=== PATIENT | male | born 1945 | race Caucasian/White ===

== ENCOUNTER 2018-07-26 13:35 | Emergency (ER) | payer MEDICARE, BC ==
--- NOTE | 2018-07-26 13:52 | ER Report ---
History and Physical Time Seen By MD: 13:51 Hx. of Stated Complaint: flu like symptoms, right sided facial numbness starting last night. HPI/ROS CHIEF COMPLAINT: shortness breath, right-sided facial numbness, tongue numbness HISTORY OF PRESENT ILLNESS: Patient is a 73-year-old male here with complaints of recent fevers, diffuse myalgias, arthralgias. Patient complains of numbness and paresthesias of the right side face with tongue numbness. Patient also had mild right-sided facial palsy. Due to the patient's history of cancer and comorbidities, concern was raised for CVA. Patient was also noted to have an irregular heartbeat on initial physical exam. Patient denies prior history of atrial fibrillation or flutter. Patient is afebrile at time of evaluation, hemodynamically stable and in no acute distress REVIEW OF SYSTEMS: Constitutional: No fever, no chills. Eyes: No discharge. ENT: No sore throat. Cardiovascular: No chest pain, no palpitations. Respiratory: No cough, no shortness of breath. Gastrointestinal: No abdominal pain, no vomiting. Genitourinary: No hematuria. Musculoskeletal: No back pain. Skin: No rashes. Neurological: Right-sided facial paresthesias, right-sided mild facial palsy Allergies: Coded Allergies: No Known Drug Allergies (Unverified , 07/26/18) Home Meds Active Scripts Rivaroxaban 20 Mg (XARELTO 20 MG) 20 Mg Tablet, 20 MG PO QDAY, #30 TAB 2 Refills Prov:MONICA MCKOY DO 07/26/18 Apixaban (ELIQUIS) 5 Mg Tablet, 5 MG PO BID, #60 TAB 2 Refills Prov:MONICA MCKOY DO 07/26/18 Prednisone (PREDNISONE) 50 Mg Tablet, 50 MG PO QDAY for 7 Days, #7 TAB Prov:MONICA MCKOY DO 07/26/18 Reported Medications Venlafaxine Hcl (EFFEXOR XR) 75 Mg Cap.er.24h, 100 MG PO QDAY 07/26/18 Constitutional Vital Sign - Last 24 Hours 07/26/18 07/26/18 07/26/18 07/26/18 13:45 14:30 15:30 17:00 Temp 98.9 Pulse 98 96 104 Resp 18 B/P (MAP) 110/94 94/75 (81) 106/82 (90) Pulse Ox 93 95 87 O2 Delivery Room Air Physical Exam General Appearance: The patient is alert, has no immediate need for airway protection and no signs of toxicity. No acute distress Eyes: Pupils equal and round no pallor or injection. ENT, Mouth: Mucous membranes are moist. Respiratory: There are no retractions, lungs are clear to auscultation. Cardiovascular: Irregular heartbeat Gastrointestinal: Abdomen is soft and non tender, no masses, bowel sounds normal. Neurological: Right-sided mild facial palsy Skin: Warm and dry, no rashes. Musculoskeletal: Neck is supple non tender. Extremities are nontender, nonswollen and have full range of motion. DIFFERENTIAL DIAGNOSIS: After history and physical exam differential diagnosis was considered for Hair palsy, CVA, TIA, viral illness, atrial fibrillation, atrial flutter Medical Decision Making Data Points Result Diagram: 07/26/18 1416 07/26/18 1416 Laboratory Hematology Test 07/26/18 14:12 07/26/18 14:16 07/26/18 14:20 B-Type Natriuretic Peptide 256 pg/ml (0-100) Red Blood Count 5.28 M/uL (4.00-5.60) Mean Corpuscular Volume 88.2 fL (80.0-96.0) Mean Corpuscular Hemoglobin 30.1 pg (26.0-33.0) Mean Corpuscular Hemoglobin Concent 34.2 g/dL (32.0-36.0) Red Cell Distribution Width 14.0 % (11.5-14.5) Mean Platelet Volume 7.7 fL (7.2-11.1) Neutrophils (%) (Auto) 59.9 % (39.4-72.5) Lymphocytes (%) (Auto) 22.2 % (17.6-49.6) Monocytes (%) (Auto) 15.3 % (4.1-12.4) Eosinophils (%) (Auto) 2.0 % (0.4-6.7) Basophils (%) (Auto) 0.6 % (0.3-1.4) Nucleated RBC Relative Count (auto) 0.2 /100WBC Neutrophils # (Auto) 2.8 K/uL (2.0-7.4) Lymphocytes # (Auto) 1.1 K/uL (1.3-3.6) Monocytes # (Auto) 0.7 K/uL (0.3-1.0) Eosinophils # (Auto) 0.1 K/uL (0.0-0.5) Basophils # (Auto) 0.0 K/uL (0.0-0.1) Nucleated RBC Absolute Count (auto) 0.01 K/uL Prothrombin Time 12.8 seconds (12.0-14.4) Prothromb Time International Ratio 0.96 Activated Partial Thromboplast Time 26 seconds (23-35) Sodium Level 136 mmol/L (137-145) Potassium Level 4.3 mmol/L (3.5-5.0) Chloride Level 98 mmol/L (98-107) Carbon Dioxide Level 25 mmol/L (22-30) Blood Urea Nitrogen 19 mg/dl (9-21) Creatinine 0.90 mg/dl (0.66-1.25) Glomerular Filtration Rate Calc > 60.0 Random Glucose 226 mg/dl (75-110) Calcium Level 9.5 mg/dl (8.4-10.2) Total Bilirubin 0.9 mg/dl (0.2-1.3) Aspartate Amino Transf (AST/SGOT) 24 U/L (0-35) Alanine Aminotransferase (ALT/SGPT) 43 U/L (0-56) Alkaline Phosphatase 104 U/L (0-126) Total Protein 7.2 g/dl (6.3-8.2) Albumin 4.3 g/dl (3.5-5.0) Influenza Virus Type A (PCR) Positive (NEGATIVE) Influenza Virus Type B (PCR) Negative (NEGATIVE) Chemistry Test 07/26/18 14:12 07/26/18 14:16 07/26/18 14:20 B-Type Natriuretic Peptide 256 pg/ml (0-100) White Blood Count 4.7 k/uL (4.5-11.0) Red Blood Count 5.28 M/uL (4.00-5.60) Hemoglobin 15.9 g/dL (14.0-18.0) Hematocrit 46.5 % (42.0-52.0) Mean Corpuscular Volume 88.2 fL (80.0-96.0) Mean Corpuscular Hemoglobin 30.1 pg (26.0-33.0) Mean Corpuscular Hemoglobin Concent 34.2 g/dL (32.0-36.0) Red Cell Distribution Width 14.0 % (11.5-14.5) Platelet Count 157 K/uL (150-450) Mean Platelet Volume 7.7 fL (7.2-11.1) Neutrophils (%) (Auto) 59.9 % (39.4-72.5) Lymphocytes (%) (Auto) 22.2 % (17.6-49.6) Monocytes (%) (Auto) 15.3 % (4.1-12.4) Eosinophils (%) (Auto) 2.0 % (0.4-6.7) Basophils (%) (Auto) 0.6 % (0.3-1.4) Nucleated RBC Relative Count (auto) 0.2 /100WBC Neutrophils # (Auto) 2.8 K/uL (2.0-7.4) Lymphocytes # (Auto) 1.1 K/uL (1.3-3.6) Monocytes # (Auto) 0.7 K/uL (0.3-1.0) Eosinophils # (Auto) 0.1 K/uL (0.0-0.5) Basophils # (Auto) 0.0 K/uL (0.0-0.1) Nucleated RBC Absolute Count (auto) 0.01 K/uL Prothrombin Time 12.8 seconds (12.0-14.4) Prothromb Time International Ratio 0.96 Activated Partial Thromboplast Time 26 seconds (23-35) Glomerular Filtration Rate Calc > 60.0 Calcium Level 9.5 mg/dl (8.4-10.2) Total Bilirubin 0.9 mg/dl (0.2-1.3) Aspartate Amino Transf (AST/SGOT) 24 U/L (0-35) Alanine Aminotransferase (ALT/SGPT) 43 U/L (0-56) Alkaline Phosphatase 104 U/L (0-126) Total Protein 7.2 g/dl (6.3-8.2) Albumin 4.3 g/dl (3.5-5.0) Influenza Virus Type A (PCR) Positive (NEGATIVE) Influenza Virus Type B (PCR) Negative (NEGATIVE) Coagulation Test 07/26/18 14:16 Prothrombin Time 12.8 seconds Prothromb Time International Ratio 0.96 Activated Partial Thromboplast Time 26 seconds EKG/Imaging EKG Interpretation Test Reason : FACIAL DROOP Blood Pressure : / mmHG Vent. Rate : 087 BPM Atrial Rate : 300 BPM P-R Int : 000 ms QRS Dur : 160 ms QT Int : 424 ms P-R-T Axes : 000 -02 153 degrees QTc Int : 510 ms Atrial flutter with variable AV block Left bundle branch block Abnormal ECG Confirmed by RADHA DUENAS ([id number]) on 07/26/2018 4:26:14 PM Referred By: LEELEE Confirmed By:RADHA DUENAS Imaging Location: [facility] Patient: Shane King : 1945 Visit/Account:[id number] Date of Sevice: 07/26/2018 EXAMINATION: MRI brain without IV contrast HISTORY: Rule out CVA. Left-sided facial numbness since yesterday. COMPARISON: None. TECHNIQUE: Multi-planar, multi-sequence brain MRI was performed without IV contrast. FINDINGS: Brain volume: Normal. Sagittal midline structures: Normal. Ventricles: Normal. Acute ischemic changes: No diffusion restriction present to suggest acute ischemia. Hemorrhage: No acute hemorrhage or hemosiderin staining. Masses/edema: None. Young-white: Negative. White matter: Patchy T2/FLAIR hyperintensities in the deep white matter bilaterally. Vessels: Normal. Extra-axial: None. Calvarium/scalp: Negative. Skull base: Negative. Visualized sinuses/orbits: Mild patchy mucosal thickening in the paranasal sinuses. Previous lens surgery bilaterally. Visualized upper neck: Negative. IMPRESSION: 1. No acute infarct, hemorrhage or intracranial mass lesion. 2. Syed-gm-swtyzsii nonspecific white matter disease is suspicious for chronic small vessel ischemia. 3. Mild nonobstructive inflammation of the paranasal sinuses. Location: [facility] Patient: Shane King : 1945 Visit/Account:[id number] Date of Sevice: 07/26/2018 EXAMINATION: Chest 2 Views HISTORY: Cough and shortness of breath COMPARISON: None. FINDINGS: The lungs are clear. No focal consolidation or pleural fluid. No pneumothorax. Normal cardiomediastinal silhouette, with normal heart size and pulmonary vascularity. No acute osseous findings. Old left rib fractures. Scattered degenerative changes along the spine. IMPRESSION: No evidence of acute cardiopulmonary disease. ED Course/Re-evaluation ED Course Patient is a 73-year-old male here with complaints of right-sided facial paresthesias, mild facial palsy, irregular heartbeat found to be in atrial flutter with variable block. There is also a left bundle-branch block which patient reports was identified on prior cardiology evaluation 2 years prior. Patient has no prior history of irregular heartbeat however physical exam was consistent with new onset or identified regular heartbeat which was identified be atrial flutter. Patient's right-sided facial palsy was concerning for CVA so MRI was completed which did not identify an acute ischemic stroke. Patient was positive for influenza a. Patient was started on prednisone seven-day course, pa tient's rate was stable On EKG. Patient was noted be asymptomatic with atrial flutter with block. Patient was given scripts for eliquis and xarelto in case her insurance did not cover one of these medications and advised to continue taking this medication until suitable follow-up with cardiology and have further evaluation with echo. I discussed these findings with the patient, the patient's and the patient's daughter and they voiced understanding of plan. Patient was advised to establish a PCP as he is new to the area. Patient was hemodynamically stable at time of discharge. Return precautions provided. Decision to Disposition Date: Jul 26, 2018 Decision to Disposition Time: 17:29 Depart Departure Latest Vital Signs Vital Signs Date Time Temp Pulse Resp B/P (MAP) Pulse Ox O2 Delivery O2 Flow Rate FiO2 07/26/18 17:00 106/82 (90) 07/26/18 15:30 104 87 07/26/18 13:45 98.9 18 Room Air Impression: Primary Impression: Hair's palsy Additional Impression: Atrial flutter Condition: Improved Disposition: HOME OR SELF-CARE New Scripts Rivaroxaban 20 Mg (XARELTO 20 MG) 20 Mg Tablet 20 MG PO QDAY, #30 TAB 2 Refills Prov: MONICA MCKOY DO 07/26/18 Apixaban (ELIQUIS) 5 Mg Tablet 5 MG PO BID, #60 TAB 2 Refills Prov: MONICA MCKOY DO 07/26/18 Prednisone (PREDNISONE) 50 Mg Tablet 50 MG PO QDAY for 7 Days, #7 TAB Prov: MONICA MCKOY DO 07/26/18 Patient Instructions: Atrial Flutter (ED), Hair Palsy (ED) Additional Instructions: Please follow up closely with cardiology for further evaluation of your abnormal heart rhythm. Please take 5 mg of Eliquis twice daily until you're able to follow up with cardiology. You may take Xarelto 20 mg daily in the evening but do not combine with Eliquis Please return promptly if you develop visual disturbances, fevers, difficulty breathing, palpitations. Please take prednisone 50 mg daily for 7 days for treatment of your Hair palsy. Problem Qualifiers MONICA MCKOY DO Jul 26, 2018 13:52
[2018-07-26 14:31] LABS: PLATELET COUNT, AUTOMATED 157 K/uL (150-450)
--- NOTE | 2018-07-26 14:33 | EKG ---
FACILITY: [facility] PATIENT NAME: KAVITA COLIN : [id number] MR: [id number] V: [id number] EXAM DATE: ORDERING PHYSICIAN: MONICA MCKOY TECHNOLOGIST: ROYAL Test Reason : FACIAL DROOP Blood Pressure : / mmHG Vent. Rate : 087 BPM Atrial Rate : 300 BPM P-R Int : 000 ms QRS Dur : 160 ms QT Int : 424 ms P-R-T Axes : 000 -02 153 degrees QTc Int : 510 ms Atrial flutter with variable AV block Left bundle branch block Abnormal ECG Confirmed by RADHA DUENAS ([id number]) on 07/26/2018 4:26:14 PM Referred By: LEELEE Confirmed By:RADHA DUENAS
[2018-07-26 14:34] LABS: INR 0.96
--- NOTE | 2018-07-26 15:00 | RADIOLOGY IMAGING REPORT ---
[place] [facility] [place] Shane King : 1945 MR: [id number] V: [id number] EXAM DATE: ORDERING PHYSICIAN: MONICA MCKOY TECHNOLOGIST: Location: [facility] Patient: Shane King : 1945 Visit/Account:[id number] Date of Sevice: 07/26/2018 EXAMINATION: Single frontal view of the orbits HISTORY: MRI screening COMPARISON: None. FINDINGS: No metallic or other radiopaque foreign bodies are visualized in the region of the bony orbits. Visu alized osseous structures are unremarkable on this single view. IMPRESSION: Exam is negative for orbital metal. Report Dictated By: Dylan Gonzalez MD at 07/26/2018 2:54 PM Report E-Signed By: Dylan Gonzalez MD at 07/26/2018 2:54 PM WSN:[id number]
--- NOTE | 2018-07-26 15:01 | RADIOLOGY IMAGING REPORT ---
FACILITY: [facility] PATIENT NAME: Shane King : 1945 MR: [id number] V: [id number] EXAM DATE: ORDERING PHYSICIAN: MONICA MCKOY TECHNOLOGIST: Location: [facility] - [place], [place] Patient: Shane King : 1945 Visit/Account:[id number] Date of Sevice: 07/26/2018 EXAMINATION: Chest 2 Views HISTORY: Cough and shortness of breath COMPARISON: None. FINDINGS: The lungs are clear. No focal consolidation or pleural fluid. No pneumothorax. Normal cardiomediastinal silhouette, with normal heart size and pulmonary vascularity. No acute osseous findings. Old left rib fractures. Scattered degenerative changes along the spine. IMPRESSION: No evidence of acute cardiopulmonary disease. Report Dictated By: Dylan Gonzalez MD at 07/26/2018 2:54 PM Report E-Signed By: Dylan Gonzalez MD at 07/26/2018 2:56 PM WSN:[id number]
[2018-07-26] MEDS ORDERED: VENL75CA58 PO (15:08)
--- NOTE | 2018-07-26 15:44 | RADIOLOGY IMAGING REPORT ---
FACILITY: [facility] PATIENT NAME: Shane King : 1945 MR: [id number] V: [id number] EXAM DATE: [id number] ORDERING PHYSICIAN: MONICA MCKOY TECHNOLOGIST: [place] [facility] [place] Shane [place] : 1945 Visit/Account:[id number] Date of Sevice: 07/26/2018 EXAMINATION: MRI brain without IV contrast HISTORY: Rule out CVA. Left-sided facial numbness since yesterday. COMPARISON: None. TECHNIQUE: Multi-planar, multi-sequence brain MRI was performed without IV contrast. FINDINGS: Brain volume: Normal. Sagittal midline structures: Normal. Ventricles: Normal. Acute ischemic changes: No diffusion restriction present to suggest acute ischemia. Hemorrhage: No acute hemorrhage or hemosiderin staining. Masses/edema: None. Young-white: Negative. White matter: Patchy T2/FLAIR hyperintensities in the deep white matter bilaterally. Vessels: Normal. Extra-axial: None. Calvarium/scalp: Negative. Skull base: Negative. Visualized sinuses/orbits: Mild patchy mucosal thickening in the paranasal sinuses. Previous lens s urgery bilaterally. Visualized upper neck: Negative. IMPRESSION: 1. No acute infarct, hemorrhage or intracranial mass lesion. 2. Lxge-lm-vzhxjrul nonspecific white matter disease is suspicious for chronic small vessel ischemia . 3. Mild nonobstructive inflammation of the paranasal sinuses. Report Dictated By: Belle York MD at 07/26/2018 3:36 PM Report E-Signed By: Belle York MD at 07/26/2018 3:40 PM WSN:[id number]
--- NOTE | 2018-07-26 16:28 | EKG ---
[place] [facility] [place] NAME: KAVITA COLIN : [id number] MR: [id number] V: [id number] EXAM DATE: ORDERING PHYSICIAN: MONICA MCKOY TECHNOLOGIST: THELMA Oshea Reason : IRREG HR Blood Pressure : / mmHG Vent. Rate : 095 BPM Atrial Rate : 293 BPM P-R Int : 000 ms QRS Dur : 154 ms QT Int : 426 ms P-R-T Axes : 270 -02 217 degrees QTc Int : 535 ms Atrial flutter with variable AV block Left bundle branch block Abnormal ECG When compared with ECG of 26-JUL-2018 14:03, Unchanged Confirmed by RADHA DUENAS ([id number]) on 07/26/2018 4:53:20 PM Referred By: LEELEE Confirmed By:RADHA DUENAS
[2018-07-26 17:00] VITALS: BP 106/82
[2018-07-26] MEDS ORDERED: APIX5TAB PO (17:34)
[2018-07-26] MEDS ORDERED: PRED50TA22 PO (17:34)
[2018-07-26] MEDS ORDERED: RIVA20TA PO (17:47)
== END 2018-07-26 17:52 | disposition home or self-care (01) ==
LOC: ER 14:00
DX: G51.0 Bell's palsy (principal); I48.92 Unspecified atrial flutter
CPT/HCPCS: 70030; 70551; 71046; 82040; 82247; 82310; 82374; 82435; 82565; 82947; 83880; 84075; 84132; 84155; 84295; 84450; 84460; 84520; 85025; 85610; 85730; 87502; 93005; 99284

== ENCOUNTER → 2018-08-22 | Outpatient (CLI) | payer MEDICARE, BC ==
[~2018-08-22] MED LIST: APIX5TAB PO; PRED50TA22 PO; RIVA20TA PO; VENL75CA58 PO
== END ==
LOC: US 01:15
PROVIDERS: ATTEND Internal Medicine Cardiovascular Disease
DX: I34.1 Nonrheumatic mitral (valve) prolapse (principal); R29.898 Other symptoms and signs involving the musculoskeletal system
CPT/HCPCS: 93306